=== PATIENT | female | born 1975 | race African-American/Black ===

== ENCOUNTER 2021-11-04 21:17 | Emergency (ER) | payer BC ==
[~2021-11-04] VITALS: Ht 165.1 cm; Wt 79.9 kg
[2021-11-04 22:02] VITALS: BP 136/79
[2021-11-04] MEDS ORDERED: SODIUM CHLORIDE 0.9% 1,000 ML IV STA (22:41)
[2021-11-04 23:09] LABS: BASOPHILS % 0.6 % (0.0-2.0); EOSINOPHILS % 0.8 % (0.0-5.0); HEMATOCRIT. 36.4 % (36.0-48.0); LYMPHOCYTES % 43.7 % (20.0-50.0); MEAN CORPUSCULAR HEMOGLOBIN 27.5 pg (28.0-32.0); MEAN CORPUSCULAR VOLUME 83.3 fL (81.0-99.0); MEAN PLATELET VOLUME 8.8 fl (7.4-10.4); MONOCYTES % 6.2 % (2.0-8.0); NEUTROPHILS % 48.7 % (40.0-76.0); PLATELET 332 x1000/uL (130-400); RED BLOOD CELL COUNT 4.37 mill/uL (4.2-5.4); RED CELL DISTRIBUTION WIDTH 15.6 % (11.6-14.6)
[2021-11-04 23:23] LABS: HCG SCREEN NEGATIVE
[2021-11-04 23:25] LABS: CHLORIDE 95 mEq/L (98-107)
[2021-11-04 23:37] LABS: BETA HYDROXYBUTYRATE 0.3 mMol/L (0.0-0.3)
[2021-11-05] MEDS ORDERED: SODIUM CHLORIDE 0.9% 1,000 ML IV ONE (00:15)
[2021-11-05 00:54] LABS: PHOSPHORUS 3.7 mg/dL (2.5-4.9)
== END 2021-11-05 01:55 | disposition home or self-care (01) ==
LOC: ER 21:17
DX: R42 Dizziness and giddiness (principal); E11.9 Type 2 diabetes mellitus without complications; I10 Essential (primary) hypertension
CPT/HCPCS: 36415; 80053; 82010; 82962; 83735; 84100; 84703; 85025; 96360; 96361; 99283; J7030